=== PATIENT | male | born 2000 | race African-American/Black ===

== ENCOUNTER 2022-03-09 22:07 | Emergency (ER) | payer OTHER, SELFPAY ==
[2022-03-09 22:11] VITALS: BP 132/74; PULSE 92; O2SAT 98
[2022-03-09 22:22] VITALS: BP 185/95; PULSE 69; RESP 16; TEMP 37.2; BMI 29.8
[2022-03-09 22:59] VITALS: O2SAT 98
--- NOTE | 2022-03-09 23:31 | ED.GENADULT ---
HPI - General Adult General Chief complaint: General Medical Stated complaint: Melas per EMS Time Seen by Provider: 03/09/22 22:28 Source: patient Mode of arrival: EMS Limitations: no limitations History of Present Illness HPI narrative: Patient feels cold outside no way to go home and she came to the ER no medical complaints as such Review of Systems Review of Systems: Yes all other systems are reviewed and are negative [facility] Social History Social History Advance Directives: No Advance Directives Information Provided: No Physical Exam ED Vital Signs: Vital Signs - 24 hr 03/09/22 22:22 03/09/22 22:59 Temperature 98.9 F Pulse Rate 69 Respiratory Rate 16 Blood Pressure 185/95 H Pulse Oximetry 98 Oxygen Delivery Method Room Air BMI result Body Mass Index 29.8 Appearance: Alert. Oriented X3. No acute distress. Eyes: PERRLA, No Nystagmus ENT: Pharynx normal. Oral Mucosa moist Neck: Normal inspection. Neck supple. CVS: Normal heart rate and rhythm. Pulses normal. Respiratory: No respiratory distress. Equal air entry bilateral, no wheezing/rales/rhonchi Abdomen: Soft and nontender. Bowel sounds are present, no mass palpable, no CVA tenderness Skin: Skin warm and dry. Normal skin color. Normal skin turgor. Extremities: No lower extremity edema. No calf tenderness Neuro: Oriented X 3. No motor deficit. No sensory deficit.No cerebellar signs , cranial nerves II-XII intact Medical Decision Making Medical Decision Making MDM Narrative: Patient with normal physical exam no medical complaints had food in the ER warm blankets were given and discharged the patient by providing him lift Discharge Plan Discharge Clinical Impression: Cold exposure Patient Disposition: Home, Self-Care Additional Instructions: Stay at home and stay warm Interventions: ED Discharge Assessment Last Done: 03/09/22 23:47 Discharge Date/Time: 03/09/22 23:48
--- NOTE | 2022-03-09 23:47 | PC.NURSE ---
This RN obtained Ly transportation home for pt.
== END 2022-03-09 23:48 | disposition home or self-care (01) ==
PROVIDERS: Emergency Provider Internal Medicine
DX: Z04.9 Encounter for examination and observation for unspecified reason (principal)
CPT/HCPCS: 99282